=== PATIENT | female | born 1985 | race Caucasian/White ===

== ENCOUNTER 2019-02-16 20:12 | Emergency (ER) | payer BC ==
[~2019-02-16] VITALS: Ht 160 cm; Wt 74.8 kg
[2019-02-16] MEDS ORDERED: AUGMENTIN 875 MG TAB (AMOXICILLIN/CLAVULANATE) ONE (20:50)
[2019-02-16] MEDS ORDERED: AMOX-358 PO (20:51)
[2019-02-16] MEDS ORDERED: ACHD5005 PO (20:51)
--- NOTE | 2019-02-16 20:51 | ED EENT ---
History of Present Illness General Chief Complaint: Dental Problems/Pain Stated Complaint: TOOTHACHE Nursing Triage Note: PT TO ED W/ C/O RT SIDE DENTAL PAIN ONSET X2 DAYS. DENIES INJURY Source: patient Exam Limitations: no limitations History of Present Illness Date Seen by Provider: Feb 16, 2019 Time Seen by Provider: 20:50 Initial Comments 33-year-old female who presents to emergency room with complaints of dental pain for the past 2 days. She reports she was flossing when her flossing device jammed her and her gums. She has redness and swelling to the right upper gum area. Location: mouth Associated Symptoms: tooth pain Allergies and Home Medications Allergies Coded Allergies: No Known Drug Allergies (Unverified , 02/16/19) Home Medications Amoxicillin/Potassium Clav 1 Each Tablet, 1 EACH PO BID Prescribed by: MY ROSENBERG on 02/16/192050 Hydrocodone Bit/Acetaminophen 1 Tab Tab, 1 EACH PO Q4-6HR PRN for PAIN-MODERATE Prescribed by: MY ROSENBERG on 02/16/192050 Patient Home Medication List Home Medication List Reviewed: Yes Review of Systems Review of Systems Constitutional: see HPI; No chills, No fever Mouth: see HPI, pain All Other Systems Reviewed Negative Unless Noted: Yes Past Mvuamoo-Euibbl-Aolebd Hx Past Med/Social Hx: Reviewed Nursing Past Med/Soc Hx Patient Social History Alcohol Use: Rarely Uses Recreational Drug Use: No Smoking Status: Current Everyday Smoker Type Used: Cigarettes Recent Foreign Travel: No Contact w/Someone Who Travel: No Recent Infectious Disease Expo: No Physical Abuse: No Sexual Abuse: No Mistreated: No Fear: No Past Medical History Surgeries: Yes (DENTAL) Respiratory: No Cardiac: No Neurological: No Genitourinary: No Gastrointestinal: Yes Gastroesophageal Reflux Musculoskeletal: No Endocrine: No HEENT: No Cancer: No Psychosocial: No Integumentary: No Family Medical History Reviewed Nursing Family Hx Physical Exam Vital Signs Vital Signs - First Documented 02/16/19 20:17 Temp 98.2 Pulse 76 Resp 18 B/P (MAP) 140/96 (111) Pulse Ox 97 O2 Delivery Room Air Height, Weight, BMI Height: 5'3.00" Weight: 165lbs. oz. [id number]; BMI Method:Stated General Appearance: WD/WN, no apparent distress Mouth/Throat: other (swelling and redness to the right upper gums. Dental pain with possible cavity.) Neurologic/Psychiatric: alert, normal mood/affect, oriented x 3 Skin: normal color, warm/dry Progress/Results/Core Measures Results/Orders My Orders Orders - MY ROSENBERG Amoxicillin/Clavulanate Tablet (Augmenti (02/17/19 08:00) Rx-Hydrocodone/Apap 5-325 Mg (Rx-Vicodin (02/16/19 21:00) Amoxicillin/Clavulanate Tablet (Augmenti (02/16/19 20:50) Vital Signs/I&O Blood Pressure Mean: 111 Departure Impression Primary Impression: Pain, dental Disposition: HOME, SELF-CARE Condition: Stable/Unchanged Departure-Patient Inst. Decision time for Depature: 20:50 Referrals: ABBY ZELAYA MD (PCP/Family) Primary Care Physician Patient Instructions: Tooth Abscess (DC) Add. Discharge Instructions: Take medications as directed. Follow-up with your dentist within 1 week for recheck. Return back to the emergency room for worsening symptoms or concerns as needed. All discharge instructions reviewed with patient and/or family. Voiced understanding. Scripts Amoxicillin/Potassium Clav (Augmentin 875-125 Tablet) 1 Each Tablet 1 EACH PO BID for 10 Days, #20 TAB 0 Refills Prov: MY ROSENBERG 02/16/19 Hydrocodone Bit/Acetaminophen (Hydrocodone/Acetaminophen 5/325mg Tablet) 1 Tab Tab 1 EACH PO Q4-6HR PRN for PAIN-MODERATE MDD 10 for 3 Days, #20 TAB Prov: MY ROSENBERG 02/16/19 MY ROSENBERG Feb 16, 2019 20:51
[2019-02-16 20:59] VITALS: BP 0/0
[2019-02-16] MEDS ORDERED: RX-HYDROCODONE/APAP 5/325 MG #4 TAB PK PO PRN (21:00)
[2019-02-17] MEDS ORDERED: AUGMENTIN 875 MG TAB (AMOXICILLIN/CLAVULANATE) PO SCH (08:00)
== END 2019-02-16 20:59 | disposition home or self-care (01) ==
LOC: EDUNIT# 20:12 → ER 20:14
DX: K08.89 Other specified disorders of teeth and supporting structures (principal); K21.9 Gastro-esophageal reflux disease without esophagitis; F17.210 Nicotine dependence, cigarettes, uncomplicated
CPT/HCPCS: 99283

== ENCOUNTER → 2023-03-21 | Outpatient (CLI) | payer BC ==
[~2023-03-21] MED LIST: ACHD5005 PO; AMOX-358 PO
== END ==
LOC: LAB 07:39
PROVIDERS: ATTEND Obstetrics & Gynecology
DX: N95.1 Menopausal and female climacteric states (principal)
CPT/HCPCS: 36415; 82670; 83001; 84403

== ENCOUNTER → 2023-03-21 | Outpatient (CLI) | payer BC ==
[2023-03-21 08:33] LABS: ALBUMIN 4.2 GM/DL (3.2-4.5); BILIRUBIN,TOTAL 0.6 MG/DL (0.1-1.0); CALCIUM 9.4 MG/DL (8.5-10.1); CREATININE SERUM 0.83 MG/DL (0.60-1.30); POTASSIUM 3.8 MMOL/L (3.6-5.0); TOTAL PROTEIN 7.1 GM/DL (6.4-8.2)
== END ==
LOC: LAB 07:42
PROVIDERS: ATTEND Registered Nurse
DX: K21.00 Gastro-esophageal reflux disease with esophagitis, without bleeding (principal); E78.5 Hyperlipidemia, unspecified; F32.9 Major depressive disorder, single episode, unspecified; Z72.0 Tobacco use
CPT/HCPCS: 36415; 80053; 80061